=== PATIENT | male | born 1990 | race Caucasian/White ===

== ENCOUNTER → 2017-11-08 | Outpatient (CLI) | payer MEDICAID, OTHER ==
--- NOTE | 2017-11-08 09:04 | CT ---
EXAMINATION TYPE: CT brain wo/w con DATE OF EXAM: 11/08/2017 COMPARISON: NONE HISTORY: G51.4 facial twitching F80.81 stuttering per order. Left-sided Headache also per patient. CT DLP: 2357 mGycm Automated Exposure Control for Dose Reduction was Utilized. TECHNIQUE: CT scan of the head is performed without and with IV Contrast, patient injected with 100 m L of Isovue 300. FINDINGS: Noncontrast images show no acute intracranial hemorrhage or midline shift. The ventricles and sulci are within normal limits in size. Cavum septum pellucidum is seen. Noel-white matter diffe rentiation is preserved. Postcontrast images show no suspicious enhancing intraparenchymal mass. The globes are intact and the visualized sinuses are clear. IMPRESSION: No suspicious finding is seen to account for patient's symptoms.
== END | disposition home or self-care (01) ==
LOC: RADCTMAIN 08:12
PROVIDERS: ATTEND Internal Medicine
DX: G51.4 Facial myokymia (principal); F80.81 Childhood onset fluency disorder
CPT/HCPCS: 70470; Q9967

== ENCOUNTER → 2018-05-05 | Outpatient (CLI) | payer MEDICAID, OTHER ==
--- NOTE | 2018-05-06 23:40 | MR ---
EXAMINATION TYPE: MR shoulder RT wo con DATE OF EXAM: 05/05/2018 COMPARISON: None HISTORY: Rt shoulder pain/burning x 1-2 mos, no trauma TECHNIQUE: Multiplanar, multisequence imaging of the right shoulder is performed without contrast. FINDINGS: The biceps tendon is intact. Subscapularis tendon is intact. Glenoid ilene appear intact. There is mi nor spurring at the AC joint. Subscapularis tendon is intact. There is 1 cm area of edema in the grea ter tuberosity of the humerus. The supraspinatus tendon is intact. There is no retraction. I see no b emeka destructive process. IMPRESSION: Small bone bruise in the greater tuberosity of the humerus. Minor degenerative changes at the AC join t. No subacromial impingement.. No evidence of rotator cuff tear.
== END | disposition home or self-care (01) ==
LOC: RADMRIMAIN 20:04
PROVIDERS: ATTEND Internal Medicine
DX: S40.021A Contusion of right upper arm, initial encounter (principal); M19.011 Primary osteoarthritis, right shoulder

== ENCOUNTER → 2018-07-13 | Outpatient (CLI) | payer MEDICAID, OTHER | LOC: LABWHC1 13:32 | PROVIDERS: ATTEND Psychiatry & Neurology Neurology | DX: F95.9 Tic disorder, unspecified (principal) | CPT/HCPCS: 36415; 82390; 82525 ==